=== PATIENT | male | born 1965 | race Caucasian/White ===

== ENCOUNTER → 2025-01-30 12:23 | Outpatient (REF) | payer BC, SELFPAY ==
[2025-01-30 13:21] LABS: Hematocrit 47.7 % (39.0-52.0); Hemoglobin 15.5 g/dL (13.0-18.0); Mean Corp Hgb Conc. 32.5 g/dL (33.0-37.0); Mean Corpuscular Volume 88.5 fL (80.0-94.0); Nucleated Red Blood Cells % 0 % (-); Platelet Count 284 10^3/uL (130-400); Red Cell Dist. Width 13.2 % (11.5-14.5)
[2025-01-30 13:58] LABS: Blood Urea Nitrogen 14 mg/dl (9-20); Calcium 9.7 mg/dl (8.4-10.2); Carbon Dioxide 34 mmol/L (22-30); Chloride 93 mmol/L (98-107); Glucose 112 mg/dl (70-99); Potassium 3.7 mmol/L (3.5-5.1); Sodium 133 mmol/L (135-145); eGFR > 60.00
== END ==
LOC: REG 12:23
PROVIDERS: ATTENDING PHYSICIAN Orthopaedic Surgery; FAMILY PHYSICIAN Family Medicine
DX: Z01.818 Encounter for other preprocedural examination (principal)
CPT/HCPCS: 36415; 80048; 85025; 93005

== ENCOUNTER 2025-02-03 06:13 | Day surgery (SDC) | payer BC, SELFPAY ==
--- NOTE | 2025-01-31 15:38 | PTCARENOTE ---
Abn ECG, Dr. Beavers notified, no additional interventions required.
[2025-02-03] VITALS (7 sets, daily range): BP systolic 100–129; BP diastolic 61–82; BMI 40.1
[2025-02-03] MEDS: TYLENOL 1000 MG PO (07:10)
[2025-02-03] MEDS: NORMOSOL-R/PLASMALYTE-A 1000 IV (07:11)
[2025-02-03] MEDS: CELEBREX 200 MG PO (07:11)
== END 2025-02-03 10:50 | disposition home or self-care (01) ==
LOC: SDS 06:13
PROVIDERS: ATTENDING PHYSICIAN Orthopaedic Surgery
DX: S83.232A Complex tear of medial meniscus, current injury, left knee, initial encounter (principal); X58.XXXA Exposure to other specified factors, initial encounter
CPT/HCPCS: 29880

== ENCOUNTER 2025-02-18 12:54 | Inpatient (IN) | payer BC, SELFPAY ==
[2025-02-18] VITALS (14 sets, daily range): BP systolic 115–162; BP diastolic 67–100; BMI 41.0
--- NOTE | 2025-02-18 08:05 | ED.GENMED ---
History of Present Illness
<Darien García PA-C - Last Filed: 02/18/25 14:48>
General
Chief Complaint: Abdominal Pain
Time Seen by Provider: 02/18/25 07:53
History of Present Illness
History of Present Illness:
58 history of hypertension and hyperlipidemia presents to the emergency department for evaluation of bright red rectal bleeding as well as syncopal event. Had heavy volume of liquid stool this morning that was mixed with blood. Second event when
being transferred on the stretcher that was associated with syncope. Current time he denies any abdominal pain and dizziness. Does not take antiplatelets or anticoagulants. No chest pain or shortness of breath. No history of similar.
Review of Systems
<Darien García PA-C - Last Filed: 02/18/25 14:48>
Review of Systems
Allergies reviewed?: Yes
All Other Systems: ROS reviewed and negative except as documented in HPI and ROS
Phy Exam
<Darien García PA-C - Last Filed: 02/18/25 14:48>
Physical Exam
Physical Exam:
GEN: Well appearing, NAD, WDWN
HEENT: Oral mucosa moist, no scleral icterus
Cardiac: Tachycardic, regular
Lung: No respiratory distress, no tachypnea
Abdomen: Soft, diffusely nontender abdomen exam limited by obesity
Rectal: Large amount of dark brown blood in the rectal vault
MSK: No gross deformity or injuries
Skin: Good color, no pallor or jaundice, no rashes
Neuro: AO x3, moves all extremities freely
Psych: Calm, cooperative
Course
<Darien García PA-C - Last Filed: 02/18/25 14:48>
Orders/Labs/Results
Orders:
Orders
02/18/25 08:02
CT Angio Abd/Pelvis w/wo IV [CT Abd/pelvis Angio W/wo Iv] Urgent
Comment:
Reason For Exam: lower GI bleed
02/18/25 08:17
Type+Screen Urgent
Complete Blood Count/With Diff Urgent
Comprehensive Metabolic Panel Urgent
Lactic Acid Urgent
02/18/25 11:00
0.9% Sodium Chloride [Nss (Preservative Free)] 10 ml IV BID
Pantoprazole [Protonix IV] 40 mg IV BID
02/18/25 11:12
Lactated Ringers [Lr] 500 ml IV BOLUS
02/18/25 12:17
Lactate Level [Lactic Acid] Urgent
02/18/25 12:32
Admit/Transfer Patient As Directed
Co-Sign Provider:
Level of Care: Inpatient admission
Assign to:: Medical/Surgical
Physician / Group: tyler aguilar
Diagnosis: Acute GI bleed
Reason for Hospitalization: Acute GI bleed
Expected length of stay greater than two midnights?: Yes
ELOS- Estimated Length of Stay in days: 3
I certify the patient meets the requirements for IP care: Yes
GASTROINTESTINAL CONSULT Routine
Consulting Provider: Yoel Eden
Was physician already notified: Yes
PRN Pain Medication Management As Directed
May give lesser potent ordered pain med per pt: Yes
preference::
Protocol:: Medication orders for pain may be administered in a
manner that supports deferring to patient preference
when the pt is:
- Requesting an ordered lesser potent pain medication.
Least to most potent pain medications are defined
as: acetaminophen < NSAID < tramadol < opioids
(morphine, oxycodone, hydromorphone).
- Requesting a lesser dose of the same medication IF
ORDERED.
- Requesting a less intrusive route of administration
if both routes are prescribed by the provider (PO <
IV).
02/18/25 12:34
Code Status As Directed
Resuscitation Status: Full Code
02/18/25 12:45
0.9% Sodium Chloride 1000 ml [Nss] 1,000 ml IV 70 mls/hr
02/19/25 06:00
Hemoglobin A1c [Glycohemoglobin (HgbA1c)] IN AM
Abnormal Lab Results
02/18/25
08:17
WBC 13.9 H 10^3/uL
(4.8-10.8)
RBC 4.38 L 10^6/uL
(4.70-6.10)
Hgb 12.9 L g/dL
(13.0-18.0)
Hct 37.2 L %
(39.0-52.0)
Abs Immat Gran (auto) 0.1 H 10^3/uL
(0-0.05)
Absolute Neuts (auto) 11.3 H 10^3/uL
(1.4-6.5)
Neutrophils % 81.0 H %
(42.2-75.2)
Lymphocytes % 13.5 L %
(20.5-51.1)
BUN 23 H mg/dl
(9-20)
Glucose 246 H mg/dl
(70-99)
Lactic Acid 2.9 H mmol/L
(0.7-2.0)
02/18/25 08:17
02/18/25 08:17
Vital Signs
Initial and Last Documented VS:
Initial Vital Signs
Temp Pulse Resp BP Pulse Ox
98.2 F 102 18 121/67 97
02/18/25 07:55 02/18/25 07:55 02/18/25 07:55 02/18/25 07:55 02/18/25 07:55
Last Documented Vital Signs
Temp Pulse Resp BP Pulse Ox
98.2 F 96 20 140/87 95
02/18/25 07:55 02/18/25 14:00 02/18/25 14:00 02/18/25 14:00 02/18/25 14:06
<Leonardo De La Cruz, DO - Last Filed: 02/18/25 08:47>
Orders/Labs/Results
Orders:
Orders
02/18/25 08:02
CT Angio Abd/Pelvis w/wo IV [CT Abd/pelvis Angio W/wo Iv] Urgent
Comment:
Reason For Exam: lower GI bleed
02/18/25 08:17
Type+Screen Urgent
Complete Blood Count/With Diff Urgent
Comprehensive Metabolic Panel Urgent
Lactic Acid Urgent
02/18/25 11:00
0.9% Sodium Chloride [Nss (Preservative Free)] 10 ml IV BID
Pantoprazole [Protonix IV] 40 mg IV BID
02/18/25 11:12
Lactated Ringers [Lr] 500 ml IV BOLUS
02/18/25 12:17
Lactate Level [Lactic Acid] Urgent
02/18/25 12:32
Admit/Transfer Patient As Directed
Co-Sign Provider:
Level of Care: Inpatient admission
Assign to:: Medical/Surgical
Physician / Group: tyler aguilar
Diagnosis: Acute GI bleed
Reason for Hospitalization: Acute GI bleed
Expected length of stay greater than two midnights?: Yes
ELOS- Estimated Length of Stay in days: 3
I certify the patient meets the requirements for IP care: Yes
GASTROINTESTINAL CONSULT Routine
Consulting Provider: Yoel Eden
Was physician already notified: Yes
PRN Pain Medication Management As Directed
May give lesser potent ordered pain med per pt: Yes
preference::
Protocol:: Medication orders for pain may be administered in a
manner that supports deferring to patient preference
when the pt is:
- Requesting an ordered lesser potent pain medication.
Least to most potent pain medications are defined
as: acetaminophen < NSAID < tramadol < opioids
(morphine, oxycodone, hydromorphone).
- Requesting a lesser dose of the same medication IF
ORDERED.
- Requesting a less intrusive route of administration
if both routes are prescribed by the provider (PO <
IV).
02/18/25 12:34
Code Status As Directed
Resuscitation Status: Full Code
02/18/25 12:45
0.9% Sodium Chloride 1000 ml [Nss] 1,000 ml IV 70 mls/hr
02/19/25 06:00
Hemoglobin A1c [Glycohemoglobin (HgbA1c)] IN AM
Abnormal Lab Results
02/18/25
08:17
WBC 13.9 H 10^3/uL
(4.8-10.8)
RBC 4.38 L 10^6/uL
(4.70-6.10)
Hgb 12.9 L g/dL
(13.0-18.0)
Hct 37.2 L %
(39.0-52.0)
Abs Immat Gran (auto) 0.1 H 10^3/uL
(0-0.05)
Absolute Neuts (auto) 11.3 H 10^3/uL
(1.4-6.5)
Neutrophils % 81.0 H %
(42.2-75.2)
Lymphocytes % 13.5 L %
(20.5-51.1)
BUN 23 H mg/dl
(9-20)
Glucose 246 H mg/dl
(70-99)
Lactic Acid 2.9 H mmol/L
(0.7-2.0)
02/18/25 08:17
02/18/25 08:17
Vital Signs
Initial and Last Documented VS:
Initial Vital Signs
Temp Pulse Resp BP Pulse Ox
98.2 F 102 18 121/67 97
02/18/25 07:55 02/18/25 07:55 02/18/25 07:55 02/18/25 07:55 02/18/25 07:55
Last Documented Vital Signs
Temp Pulse Resp BP Pulse Ox
98.2 F 96 20 140/87 95
02/18/25 07:55 02/18/25 14:00 02/18/25 14:00 02/18/25 14:00 02/18/25 14:06
<Darien García PA-C - Last Filed: 02/18/25 14:48>
MDM/Problems Addressed
MDM/Problems Addressed:
Imaging without evidence for active large gastrointestinal hemorrhage. The patient's vital signs did improve in the ED, his syncopal event was likely a vagal event secondary to GI irritation from active bleeding. Did have continued slow oozing of
dark red blood while in the ED. Will admit to the hospitalist service for GI consultation. His lactic acidosis is noted, feel this most likely is due to transient hypotension from syncope, given hemodynamic improvement would avoid further
crystalloid infusion to avoid hemodilution in the setting of active bleeding process
<Darien García PA-C - Last Filed: 02/18/25 14:48>
*Pulse Oximetry
SaO2: 97
Oxygen Mode of Delivery: Room air
Patient hypoxic: no
*Critical Care Note
Total Time (30-74mins, 75-104mins- exclusive of procedures): Not Applicable
ED Attending Note
<Darien García PA-C - Last Filed: 02/18/25 14:48>
-
Portions of this chart may have been created with voice recognition software.� Occasional wrong word or��sound alike� substitutions may have occurred due to the inherent limitations of voice recognition software.
<Leonardo De La Cruz DO - Last Filed: 02/18/25 08:47>
ED Attending Note
Patient seen and examined by attending physician: Yes
ED Attending Note:
I reviewed and agree with history treatment plan by Todd García PA-C. My exam revealed
Physical Exam
General: no apparent distress, not acutely ill
Neck: supple. no meningeal signs. normal posterior pharynx
Heart: s1/s2 regular rate and rhythm, no murmur. equal radial
pulses.
HEENT: Pupils equal round reactive to light, EOMI
Lungs: no acute respiratory distress. clear bilaterally
Abdomen: normal bowel sounds. not tender. no CVAT, bright red blood per rectum
Neuro: alert and oriented. no focal neurological deficits cranial nerves II through XII intact
Skin: no rash
Psychiatric: well kept. interactive and cooperative
Extremities: no edema. no calf tenderness. negative homans. good distal pulses
59-year-old male with rectal bleeding, unclear etiology. Patient had syncopal episode as well. CT angiography and labs are pending. Plan for admission for further workup.
Discharge Plan
Departure
Patient Disposition: Admit
Date of Disposition: 02/18/25
Time of Disposition: 09:23
Admit to: IMU
Presentation/result/management discussed w/ accepting MD/DO: Hospitalist
Discharge Problem:
Acute lower GI hemorrhage
Interventions
Interventions:
*General Assessment Last Done: 02/18/25 07:55
*Neglect/Abuse Screening Last Done: 02/18/25 07:55
*ED COVID-19 Vaccine History Last Done: 02/18/25 07:55
*ED Influenza Vaccine History Last Done: 02/18/25 07:55
[facility] Risk Assessment Tool Last Done: 02/18/25 07:55
*Risk Screen - Suicide (C-SSRS) Last Done: 02/18/25 07:55
AP-Oxatbu-Bfzpptuykd Assessment Last Done: 02/18/25 09:19
[2025-02-18 08:46] LABS: Hematocrit 37.2 % (39.0-52.0); Hemoglobin 12.9 g/dL (13.0-18.0); Mean Corp Hgb Conc. 34.7 g/dL (33.0-37.0); Mean Corpuscular Volume 84.9 fL (80.0-94.0); Nucleated Red Blood Cells % 0 % (-); Platelet Count 309 10^3/uL (130-400); Red Cell Dist. Width 12.9 % (11.5-14.5)
[2025-02-18 08:59] LABS: ALT (SGPT) 24 U/L (0-50); AST (SGOT) 21 U/L (17-59); Albumin 4.2 g/dl (3.5-5.0); Alkaline Phosphatase 50 U/L (38-126); Blood Urea Nitrogen 23 mg/dl (9-20); Calcium 9.4 mg/dl (8.4-10.2); Carbon Dioxide 24 mmol/L (22-30); Chloride 99 mmol/L (98-107); Estimated Creatinine Clearance > 125 ml/min; Glucose 246 mg/dl (70-99); Potassium 3.5 mmol/L (3.5-5.1); Sodium 135 mmol/L (135-145); Total Protein 6.6 g/dl (6.3-8.2); eGFR > 60.00
--- NOTE | 2025-02-18 10:12 | CON.GI ---
Consultation
-
Date/Time Consultation Requested: 02/18/25929
Date/Time Consultation Performed: 02/18/25, 1013
Requesting Provider: Fallon Bridges MD
Performing Provider: Yoel Eden DO
Reason for Consultation: Lower GI bleed
Medical History
Chief Complaint / HPI
Chief Complaint: Abdominal Pain
History of Present Illness:
Mr Downing is a 59 y.o male with a past medical history of HTN, HLD, morbid obesity, colon polyps, diverticulosis, and recent orthopedic surgery (01/2025) with significant NSAID use who presented to the ED with bright red blood per rectum concerning
for lower GI bleed. GI has been consulted for further evaluation and management.
Patient states he was in his usual state of health until around 0200 a.m. when he experienced significant generalized abdominal pain. Gabbs as though he was going to vomit and had episodes of dry heaving. Denies any episodes of coffee-ground emesis
or hematemesis. He felt as though his symptoms may be related to a viral gastroenteritis. He went to the bathroom approximately 4�5 times and later found to have significant bright red blood filling the toilet bowl along with blood clots. He
denies any prior history of GI bleeding in the past. He continue to have ongoing large-volume hematochezia along with presyncopal symptoms. Given his bloody stools, he came to the ED for further evaluation via EMS. Otherwise, he denies any
antiplatelet or anticoagulants. However, he notes taking significant NSAID use specifically with Aleve (800 mg twice daily) for several months due to his chronic knee pain and recently underwent orthopedic surgery back on 01/2025. His last
colonoscopy is back on 11/2020 where he was found to have a few colon polyps along with diverticulosis in the sigmoid and descending colon along with nonbleeding internal hemorrhoids. He was advised to repeat colonoscopy in 3 years for surveillance
and is overdue. Otherwise, he denies any family history of CRC. Currently, he reports feeling well with complete resolution of his previous abdominal pain and denies any other discomfort.
Prior colonoscopy (screening, adequate prep- Do) 11/2020- Impression: Normal ileum. One 10 mm polyp at HF injected and removed via HS and clipped/tattooed (path with TA), one 6 mm polyp in SC removed via HS (path with TA), one 3 mm polyp removed via
biopsy forceps (path with HPP), diverticulosis in sigmoid and descending colon along with non-bleeding internal hemorrhoids. Examination was otherwise normal. Advised a repeat colonoscopy in 3 years for surveillance.
In the ED, patient was afebrile and HD-stable with HR 50-100s. Labs notable for BUN 23, Rivet Thrower 0.8, and normal LFTs. Lactic acid 2.9. CBC with WBC 13.9, Hgb 12.9 (prev 15.5) and plts 309. CTA Abd/pelvis (-) active GI bleed and noted colonic
diverticulosis and diffuse hepatic steatosis. Patient was given IVF and admitted to medicine for further management.
Past Medical History
Past Medical History: Other (HTN, HLD, obesity, colon polyps, diverticulosis)
Past Surgical History: Orthopedic
Social History
Alcohol: None
Drug: None
Family History
Family History: Reviewed & Not Pertinent
Allergies / Home Medications
Allergy/AdvReac Type Severity Reaction Status Date / Time
No Known Allergies Allergy Unverified 02/03/25 06:55
�Medication �Instructions �Recorded
chlorthalidone 25 mg tablet 25 mg PO DAILY 02/01/25
rosuvastatin 10 mg tablet 10 mg PO DAILY 02/01/25
ibuprofen 200 mg tablet (Advil) 800 mg PO PRN PRN pain 02/03/25
Review of Systems
-
All other systems: A 12 pt ROS was Negative except as stated above in HPI
Vital Signs
Temp Pulse Resp BP Pulse Ox
98.2 F 90 16 149/100 94
02/18/25 07:55 02/18/25 09:17 02/18/25 09:17 02/18/25 09:16 02/18/25 09:17
Physical Exam
Exam
General: No Apparent Distress, Comfortable and Other (Obese)
HEENT: Anicteric and Moist Mucous Membranes
Respiratory: Non Labored Respirations
Cardiac: Other (RR on tele)
GI: Soft, Non Tender and Distended (Moderately distended, protuberant obese abdomen)
Neuro: AO x 3 and Nonfocal/Grossly Intact
Psych: Calm
Results
WBC 13.9 10^3/uL (4.8-10.8) H 02/18/25 08:17
Hgb 12.9 g/dL (13.0-18.0) L 02/18/25 08:17
Hct 37.2 % (39.0-52.0) L 02/18/25 08:17
MCV 84.9 fL (80.0-94.0) 02/18/25 08:17
Plt Count 309 10^3/uL (130-400) 02/18/25 08:17
Absolute Neuts (auto) 11.3 10^3/uL (1.4-6.5) H 02/18/25 08:17
Sodium 135 mmol/L (135-145) 02/18/25 08:17
Potassium 3.5 mmol/L (3.5-5.1) 02/18/25 08:17
Chloride 99 mmol/L (98-107) 02/18/25 08:17
Carbon Dioxide 24 mmol/L (22-30) 02/18/25 08:17
BUN 23 mg/dl (9-20) H 02/18/25 08:17
Creatinine 0.8 mg/dL (0.7-1.3) 02/18/25 08:17
Calcium 9.4 mg/dl (8.4-10.2) 02/18/25 08:17
Total Bilirubin 0.5 mg/dl (0.2-1.3) 02/18/25 08:17
AST 21 U/L (17-59) 02/18/25 08:17
ALT 24 U/L (0-50) 02/18/25 08:17
Alkaline Phosphatase 50 U/L (38-126) 02/18/25 08:17
Diagnostic Image Results: As detailed above
Assessment / Plan
-
Mr Downing is a 59y.o male with a past medical history of HTN, HLD, morbid obesity, colon polyps, diverticulosis, and recent orthopedic surgery (01/2025) with significant NSAID use who presented to the ED with bright red blood per rectum concerning
for GI bleed. GI has been consulted for further evaluation and management.
#Hematochezia
#Acute Blood Loss Anemia
#Syncope
#Elevated Lactic Acid
#Abdominal Pain #Nausea
#Significant NSAID Use
Impression: Patient presenting with multiple episodes of large-volume hematochezia and syncope concerning for GI bleed. Previously had abdominal pain, nausea along with dry heaving prior to his bloody bowel movements at home. No similar symptoms in
past. Found to have mild anemia with hemoglobin of 12s in ED (prev 15) although suspect degree of hemoconcentration secondary to hypovolemia along with leukocytosis. Recent CTA unremarkable for any active extravasation only noting colonic
diverticulosis. Otherwise, he is not on any antiplatelets, anticoagulants and denies any prior history of GI bleeding in the past. Last colonoscopy back on 11/2020 with few colon polyps and scattered diverticulosis in sigmoid and descending colon.
Clinically, his symptoms seem most consistent for a diverticular hemorrhage although somewhat atypical versus ischemic colitis given his abdominal pain, elevated lactate although no CT evidence suggest colonic wall thickening. Doubt brisk UGIB
based on his hemodynamics and without melena. However, has been taking significant amounts of NSAIDs (specifically Aleve 800 mg twice daily for months) and given his previous abdominal pain/nausea along with elevated BUN (likely due to hypovolemia)
concern for possible PUD. Currently, he is hemodynamically stable pending IVF for ongoing resuscitation.
Recommendations:
- Ensure 2 large-bore IVs
- Okay for CLD
- Trend Hgb with serial CBC q 12 hrs, repeat CBC later this afternoon
- Start IV PPI 40 mg BiD
- Repeat lactate after IVF
- Tentatively plan for EGD and colonoscopy early next week on 02/20/2025 with plans to start bowel prep tomorrow
- If recurrent large-volume hematochezia over weekend or other concern for brisk GI bleeding, would obtain repeat stat CTA in attempts of localization
- Avoidance of all NSAIDs
- Pain control and antiemetics as needed
- Rest of care as per primary team
Discussed with primary internal medicine team. GI will continue to follow.
Data Reviewed
-
Radiology: Image Personally Visualized and interpreted and Report Reviewed by me
CT Scan: Image Personally Visualized and interpreted and Report Reviewed by me
Old Records: Reviewed
-
-
Thank you for consultation and allowing me to participate in the patient's care. Please call the correctional officer GI physician during the after hours with any questions or concerns.
[2025-02-18] MEDS: PROTONIX IV 40 MG IV ×2 (10:50→21:09)
[2025-02-18] MEDS: NSS (PRESERVATIVE FREE) 10 ML IV ×2 (10:50→21:09)
[2025-02-18] MEDS: LR 500 IV (11:40)
--- NOTE | 2025-02-18 12:37 | HPS.HSE ---
Family Physician
-
Family Physician: Kamran West
Chief Complaint
-
Abdominal pain, bloody stool
History of Present Illness
59-year-old male with past medical history of hyperlipidemia, morbid obesity, colon polyp, hypertension, diverticulosis, recent knee surgery came to the hospital with bright red blood per rectum. Per patient after his knee surgery he has been
taking quite few ibuprofen. He also is complaining of abdominal pain. Denies any fever/chills. Denies any nausea, vomiting, diarrhea, constipation.
Medical History
Past Medical History
Past Medical History: Reports HTN, Hypercholesterolemia and Other (Diverticulosis)
Past Surgical History: Reports Orthopedic
Social History
Alcohol: None
Drug: None
Family History
Family History: Not pertinent
Allergies / Home Medications
Allergies reflects when Allergies were last updated in [facility].
Home Medications with original date entered in [facility]
Allergy/Medication List:
Allergies
Allergy/AdvReac Type Severity Reaction Status Date / Time
No Known Allergies Allergy Unverified 02/03/25 06:55
Home Medications
chlorthalidone 25 mg tablet 25 mg PO DAILY 02/01/25
rosuvastatin 10 mg tablet 10 mg PO DAILY 02/01/25
ibuprofen 200 mg tablet (Advil) 800 mg PO PRN PRN pain 02/03/25
famotidine 20 mg tablet (Pepcid) 20 mg PO DAILY PRN acid reflux 02/18/25
Review of Systems
-
History Source: Patient
A 12 point ROS was completed and negative except as noted: Yes
Abdomen/GI: Reports Abdominal Pain and Bloody Stools
Physical Exam
Vital Signs
Vital Signs
Temp Pulse Resp BP Pulse Ox
98.2 F 75 13 121/78 96
02/18/25 07:55 02/18/25 12:00 02/18/25 12:00 02/18/25 12:00 02/18/25 12:00
Physical Exam
General: No Apparent Distress and Comfortable
HEENT: NormoCephalic, Anicteric and Moist mucous membranes
Respiratory: Clear and Non Labored Respirations; No Wheezes
Cardiac: S1/S2 and Regular Rhythm
GI: Soft, Non Tender, Normal Bowel Sounds and Tender
Genito-urinary: No Rothman
Musculoskeletal: No Edema
Neuro: Awake, Alert, Oriented and AO x 3
Psych: Calm and Intact Judgment/Insight
Laboratory Results
-
02/18/25 08:17
02/18/25 08:17
Laboratory Results
Lactic Acid 2.9 mmol/L (0.7-2.0) H 02/18/25 08:17
Total Bilirubin 0.5 mg/dl (0.2-1.3) 02/18/25 08:17
AST 21 U/L (17-59) 02/18/25 08:17
ALT 24 U/L (0-50) 02/18/25 08:17
Alkaline Phosphatase 50 U/L (38-126) 02/18/25 08:17
Impression/Plan
-
Hematochezia with acute blood loss anemia secondary to GI bleed
Given his recent use of ibuprofen cannot rule out upper GI bleed
Continue IV PPI twice daily
Trend H&H, transfuse hemoglobin less than 7
Continue with fluids
Abdomen CT scan without active GI extravasation, 1.1 cm indeterminate nodule in the lateral aspect of interpole of the left kidney. MRI abdomen nonemergent outpatient
GI following, plan for EGD/colonoscopy per GI
Clear liquid diet
Presyncope likely 2/2 Acute GI bleed
monitor
cw IVF
Lactic acidosis
Resolved
Continue fluids
History of hypertension
Chlorthalidone
Hyperlipidemia
Morbid obesity due to excess calories
Monitor
Should get sleep apnea study outpatient
DVT prophylaxis
SCDs
Full code
I spent a total of 76 minutes with the patient or on the floor. More than 50% of this time involved counseling and coordination of care.
[2025-02-18] MEDS: NSS 1000 IV ×2 (13:59→21:21)
--- NOTE | 2025-02-18 15:15 | CM ---
Chart reviewed and spoke with and pt at ED bedside
Lives in [address] [facility]
independent with ADLs and ambulation
no DME
PCP Samantha West
[facility] on [address]
NO hx of VN
no hx of SNF
DCP to go home
can drive him home
CM will continue to follow up for dcp needs
[2025-02-18 15:55] LABS: Hematocrit 33.9 % (39.0-52.0); Hemoglobin 11.8 g/dL (13.0-18.0)
--- NOTE | 2025-02-18 20:50 | PTCARENOTE ---
Pt arrived from the ED by stretcher. Pullover onto hospital bed. NSS running through right AC IV. Call wagner within reach. Will continue to monitor.
[2025-02-19] VITALS (7 sets, daily range): BP systolic 121–145; BP diastolic 63–91
[2025-02-19 01:34] LABS: Hematocrit 30.9 % (39.0-52.0); Hemoglobin 10.7 g/dL (13.0-18.0)
--- NOTE | 2025-02-19 06:32 | W.PN.GI.CBS2 ---
Today's Communication / Plan
-
No signs of recurrent bleeding, suggestive of resolving diverticular bleed. Ordered Miralax prep to start this AM then Nulytely prep later this afternoon. Plan for EGD/Colon tomorrow, keep NPO at [place] (except for bowel prep- okay to continue). Rest of
care as below.
Assessment / Plan
-
Mr Downing is a 59y.o male with a past medical history of HTN, HLD, morbid obesity, colon polyps, diverticulosis, and recent orthopedic surgery (01/2025) with significant NSAID use who presented to the ED with bright red blood per rectum concerning
for GI bleed. GI has been consulted for further evaluation and management.
#Hematochezia
#Acute Blood Loss Anemia
#Syncope
#Elevated Lactic Acid
#Abdominal Pain #Nausea
#Significant NSAID Use
Impression: Patient presenting with multiple episodes of large-volume hematochezia and syncope concerning for GI bleed. Previously had abdominal pain, nausea along with dry heaving prior to his bloody bowel movements at home. No similar symptoms in
past. Found to have mild anemia with hemoglobin of 12s in ED (prev 15) although suspect degree of hemoconcentration secondary to hypovolemia along with leukocytosis. Recent CTA unremarkable for any active extravasation only noting colonic
diverticulosis. Otherwise, he is not on any antiplatelets, anticoagulants and denies any prior history of GI bleeding in the past. Last colonoscopy back on 11/2020 with few colon polyps and scattered diverticulosis in sigmoid and descending colon.
Clinically, his symptoms seem most consistent for a diverticular hemorrhage although somewhat atypical versus ischemic colitis given his abdominal pain, elevated lactate although no CT evidence suggest colonic wall thickening. Doubt brisk UGIB
based on his hemodynamics and without melena. However, has been taking significant amounts of NSAIDs (specifically Aleve 800 mg twice daily for months) and given his previous abdominal pain/nausea along with elevated BUN (likely due to hypovolemia)
concern for possible PUD. Currently, he is hemodynamically stable without signs of recurrent GI bleedings since admission.
Hgb 12.9 -> 11.8 -> 10.7 -> 10.2 without recurrent hematochezia, passing old blood again most suggestive of resolving diverticular hemorrhage.
Recommendations:
- Ensure 2 large-bore IVs
- Continue CLD, keep NPO at [place] (EXCEPT FOR PREP)
- Trend Hgb with CBC q daily, transfuse PRN
- Empiric IV PPI 40 mg BiD
- Plan for bi-directional endoscopy with EGD/Colon tomorrow, 02/20/2025
- Ordered Miralax prep to start clean early this AM given body habitus
- Then will start 4L Nulytely prep later this afternoon around 1600
- If recurrent large-volume hematochezia over weekend or other concern for brisk GI bleeding, would obtain repeat stat CTA in attempts of localization
- Avoidance of all NSAIDs
- Pain control and antiemetics as needed
- Rest of care as per primary team
GI will continue to follow.
Subjective
Subjective
Date of Service: February 19, 2025
- No acute events overnight or further reported bloody BMs since admission
- Lactate 2.9 -> 1.6
- Hgb 12.9 -> 11.8 -> 10.7 -> 10.2
Resting comfortably this AM, denies any further bright red blood or large volume hematochezia since admission. Passed small amount of old blood this AM and continues to pass large amount of flatus. No other recurrent abdominal pain or
nausea/vomiting. Discussed pursuing EGD/Colon tomorrow and he is amenable in regards to his.
Objective
Data Reviewed
Laboratory Data:
Laboratory Results
Total Bilirubin 0.5 mg/dl (0.2-1.3) 02/18/25 08:17
AST 21 U/L (17-59) 02/18/25 08:17
ALT 24 U/L (0-50) 02/18/25 08:17
Alkaline Phosphatase 50 U/L (38-126) 02/18/25 08:17
Vital Signs and I&O:
Vital Signs
Temp Pulse Resp BP Pulse Ox
97.8 F 79 18 129/63 95
02/19/25 03:21 02/19/25 03:21 02/19/25 03:21 02/19/25 03:21 02/19/25 03:21
Physical Exam
Physical Exam
HEENT: Anicteric and Moist mucous membranes
Pulmonary: Other (Normal WOB on room air)
GI: Soft, Distended (Distended, protuberant obese abdomen) and Non Tender
Neuro: Non Focal
[2025-02-19 07:58] LABS: Hematocrit 29.9 % (39.0-52.0); Hemoglobin 10.2 g/dL (13.0-18.0)
[2025-02-19 08:00] LABS: Hematocrit 29.6 % (39.0-52.0); Hemoglobin 10.2 g/dL (13.0-18.0); Mean Corp Hgb Conc. 34.5 g/dL (33.0-37.0); Mean Corpuscular Volume 87.1 fL (80.0-94.0); Nucleated Red Blood Cells % 0 % (-); Platelet Count 265 10^3/uL (130-400); Red Cell Dist. Width 13.3 % (11.5-14.5)
[2025-02-19 08:23] LABS: Blood Urea Nitrogen 20 mg/dl (9-20); Calcium 8.8 mg/dl (8.4-10.2); Carbon Dioxide 31 mmol/L (22-30); Chloride 99 mmol/L (98-107); Estimated Creatinine Clearance > 125 ml/min; Glucose 136 mg/dl (70-99); Potassium 3.0 mmol/L (3.5-5.1); Sodium 135 mmol/L (135-145); eGFR > 60.00
[2025-02-19] MEDS: CRESTOR 10 MG PO (08:32)
[2025-02-19] MEDS: PROTONIX IV 40 MG IV ×2 (08:33→19:37)
[2025-02-19] MEDS: NSS (PRESERVATIVE FREE) 10 ML IV ×2 (08:33→19:37)
[2025-02-19 08:53] LABS: Glycohemoglobin (HgbA1c) 6.7 % (4.0-5.9)
[2025-02-19] MEDS: KCL 40 MEQ PO (09:08)
[2025-02-19] MEDS: GAVILAX 238 GM PO (10:52)
--- NOTE | 2025-02-19 11:47 | W.PN.HOSP.TC ---
Today's Communication/Plan
-
Monitor vitals
See plan
Monitor hemoglobin
Monitor for the bleeding
Bowel prep per GI
N.p.o. tomorrow for EGD and colonoscopy
PPI
Assessment / Plan
Assessment / Plan
General: No Apparent Distress and Comfortable
HEENT: NormoCephalic, Anicteric and Moist mucous membranes
Respiratory: Clear and Non Labored Respirations; No Wheezes
Cardiac: S1/S2 and Regular Rhythm
GI: Soft, Non Tender, Normal Bowel Sounds and Tender
Genito-urinary: No Rothman
Musculoskeletal: No Edema
Neuro: Awake, Alert, Oriented and AO x 3
Psych: Calm and Intact Judgment/Insight
Hematochezia with acute blood loss anemia secondary to GI bleed
Given his recent use of ibuprofen cannot rule out upper GI bleed
Continue IV PPI twice daily
Trend H&H, transfuse hemoglobin less than 7
Continue with fluids
Abdomen CT scan without active GI extravasation, 1.1 cm indeterminate nodule in the lateral aspect of interpole of the left kidney. MRI abdomen nonemergent outpatient
GI following, plan for EGD/colonoscopy per GI
Clear liquid diet, n.p.o. 02/20 for EGD and colonoscopy
Bowel prep per GI
Hemoglobin 10.2 today
Presyncope likely 2/2 Acute GI bleed
monitor
cw IVF
Lactic acidosis
Resolved
Continue fluids
Hypokalemia
Replete
History of hypertension
Hold chlorthalidone as blood pressure normal and has hypokalemia
Hyperlipidemia
Morbid obesity due to excess calories
Monitor
Should get sleep apnea study outpatient
DVT prophylaxis
SCDs
Full code
Anticipated Discharge: 24 - 48 hours
Subjective/Interval History
-
Date of Service: February 19, 2025
Denies pain
Objective Data
-
Labs:
Laboratory Results
02/19/25 02/19/25 02/19/25
01:16 07:35 07:35
WBC 6.9
Hgb 10.7 L 10.2 L 10.2 L
Hct 30.9 L 29.6 L
Plt Count
Sodium
Potassium
Chloride
Carbon Dioxide
BUN
Creatinine
Glucose
Calcium
02/19/25
07:35
WBC
Hgb
Hct 29.9 L
Plt Count 265
Sodium 135
Potassium 3.0 L
Chloride 99
Carbon Dioxide 31 H
BUN 20
Creatinine 0.7
Glucose 136 H
Calcium 8.8
Vital Signs:
Vital Signs
Temp Pulse Resp BP Pulse Ox
98.5 F 73 16 121/66 94
02/19/25 08:19 02/19/25 08:32 02/19/25 08:19 02/19/25 08:32 02/19/25 08:19
I&O
02/18/25 02/19/25 02/20/25
06:59 06:59 06:59
Output Total 700 / 700
Balance -700 / -700
[2025-02-19] MEDS: KCL 20 MEQ PO (12:58)
[2025-02-19] MEDS: NSS 1000 IV (12:58)
[2025-02-19] MEDS: NULYTELY SOLUTION 4 LITERS PO (15:53)
[2025-02-19] MEDS: DULCOLAX 10 MG PO (15:54)
[2025-02-20 02:54] VITALS: BP 120/69
[2025-02-20] MEDS: NSS 1000 IV (03:40)
[2025-02-20 06:00] VITALS: BMI 39.1
[2025-02-20 06:52] LABS: Hematocrit 30.7 % (39.0-52.0); Hemoglobin 10.5 g/dL (13.0-18.0); Mean Corp Hgb Conc. 34.2 g/dL (33.0-37.0); Mean Corpuscular Volume 85.8 fL (80.0-94.0); Nucleated Red Blood Cells % 0 % (-); Platelet Count 272 10^3/uL (130-400); Red Cell Dist. Width 13.2 % (11.5-14.5)
[2025-02-20 07:40] VITALS: BP 127/74
[2025-02-20] MEDS: NSS (PRESERVATIVE FREE) 10 ML IV (07:51)
[2025-02-20] MEDS: PROTONIX IV 40 MG IV (07:51)
[2025-02-20] MEDS: CRESTOR PO (07:52)
--- NOTE | 2025-02-20 07:52 | W.PN.HOSP.TC ---
Today's Communication/Plan
-
Discharge home today
Assessment / Plan
Assessment / Plan
Impression:
59 years old with history of hypertension, hyperlipidemia, obesity, who admitted with GI bleeding, seen by GI, plan for EGD/colonoscopy.
EGD/colonoscopy showed:
EGD Findings:
Normal esophagus; Z-line regular at 43 cm from incisors.
Gastric fundus and body showed erythematous and petechial mucosa; biopsies obtained.
No erosions or ulcerations; stomach otherwise normal on direct and retroflexion views.
Duodenum normal up to second portion.
No evidence of active or old bleeding; remainder of upper GI tract normal.
Colonoscopy Findings:
Perianal and digital rectal exams normal.
Visualization limited by extensive semi-liquid stool, blood clots, and poor prep despite lavage.
Terminal ileum normal.
Polyps:
3 mm sessile polyp in ascending colon removed with cold snare; complete resection and retrieval.
10 mm semi-pedunculated polyp in transverse colon removed with hot snare; complete resection and retrieval. Three hemostatic clips placed for hemostasis and tissue capture.
Tattoo at hepatic flexure noted; site normal.
Multiple diverticula throughout colon.
Small amount of old blood clots and copious brown stool suggestive of resolved diverticular hemorrhage.
No active bleeding at end of procedure.
GI recommended:
- Await pathology results from EGD and colonoscopy
- Strict avoidance of all NSAIDs
- Recommend a repeat colonoscopy as an outpatient within 3 months.
Will require an extended two-day prep
- Return to GI office at appointment to be scheduled after discharge
She will be discharged home today, avoid NSAIDs and repeat CBC after 1 week, follow-up with GI as OP.
Newly diagnosed diabetes, discussed with the patient, diet and exercise, provided with instructions.
Assessment/plan:
Hematochezia with Acute Blood Loss Anemia (Secondary to GI Bleed) status post EGD/colonoscopy
Recent ibuprofen use;
Started IV PPI twice daily
Trend H&H; transfuse if hemoglobin < 7
Started IV fluids
CT abdomen: no active GI extravasation; 1.1 cm indeterminate nodule in lateral aspect of interpole of left kidney ? MRI abdomen outpatient (non-emergent)
GI following; plan for EGD/colonoscopy per GI
Resulted as above.
EGD unremarkable.
Colonoscopy shows 2 polyps status post removal/diverticulosis.
GI recommending avoiding NSAIDs.
Will be discharged home today and repeat CBC after only
Presyncope (Likely Secondary to Acute GI Bleed)
Monitor
Continue IV fluids
Diabetes mellitus newly diagnosed (no history of diabetes)
Hemoglobin A1c 6.7.
Insulin sliding scale.
Diabetic teaching.
Discussed with the patient, diet and exercise, provided with instructions.
Patient prefers to hold off starting metformin for now.
Lactic Acidosis
Resolved
Continue fluids
Hypokalemia
Replete potassium
History of Hypertension
Hold chlorthalidone (BP normal and hypokalemia present)
Hyperlipidemia
Continue current management
Morbid Obesity (Due to Excess Calories)
Monitor
Recommend outpatient sleep apnea study
DVT Prophylaxis
Sequential compression devices (SCDs)
Code Status
Full code
Diet: low carb.
Disposition: Discharge home today.
Total time spent on today's encounter was 55 minutes which included time spent in counseling the patient/family regarding diagnosis and treatment plan as listed above, goals of care, and symptom management. Case was discussed with nursing staff,
specialists, and care coordinators/case management. All labs and imaging personally reviewed by me. Remainder the time spent in detailed review of previous records, lab data, imaging, and other medical provider documentation.
Part of this note was created using voice recognition system. Occasional wrong word or �sound alike� substitutions may have inadvertently occurred due to the inherent limitations of voice recognition software. If noted kindly bring it to my
attention for correction.
Anticipated Discharge: Today
Subjective/Interval History
-
Date of Service: February 20, 2025
Patient seen and examined at bedside, denies any chest pain or shortness of breath, no abdominal pain, no nausea, no vomiting, no diarrhea or constipation.
Objective Data
-
Labs:
Laboratory Results
02/20/25
06:42
WBC 7.5
Hgb 10.5 L
Hct 30.7 L
Plt Count 272
Sodium Pending
Potassium Pending
Chloride Pending
Carbon Dioxide Pending
BUN Pending
Creatinine Pending
Glucose Pending
Calcium Pending
Vital Signs:
Vital Signs
Temp Pulse Resp BP Pulse Ox
98.5 F 66 16 127/74 94
02/20/25 07:40 02/20/25 07:40 02/20/25 07:40 02/20/25 07:40 02/20/25 07:40
I&O
02/19/25 02/20/25 02/21/25
06:59 06:59 06:59
Intake Total 4850 / 4850
Output Total 700 / 700
Balance -700 / -700 4850 / 4850
Physical Exam
-
General: Well Developed, Well Nourished, No Apparent Distress and Comfortable
HEENT: Normocephalic, Atraumatic, Moist Mucous Membranes, No Ptosis, PERRLA and Nose Appears Normal
Respiratory: Clear to Auscultation and Non Labored Respirations
Cardiac: Regular Rhythm and S1/S2
Breast: Deferred by me
GI: Soft, Nontender, Nondistended and Normal Bowel Sounds
Genito-urinary: No Costovertebral Tender
Musculoskeletal: No Clubbing, No Cyanosis and No Edema
Skin: Warm
Neuro: Awake, Alert, Oriented, AO x 3 and No Motor Deficits
Psych: Calm
Data Reviewed
-
Diagnostic Radiology: Image personally visualized and interpreted and Report Reviewed by me
CT Scan: Image personally visualized and interpreted and Report Reviewed by me
Ultrasound: Image personally visualized and interpreted and Report Reviewed by me
MRI: Image personally visualized and interpreted and Report Reviewed by me
Medical Tests (Nuc Med, Echo etc): Image personally visualized and interpreted and Report Reviewed by me
Labs: Labs Reviewed by me
Old Records: Reviewed
[2025-02-20 08:15] LABS: Blood Urea Nitrogen 13 mg/dl (9-20); Calcium 9.1 mg/dl (8.4-10.2); Carbon Dioxide 28 mmol/L (22-30); Chloride 98 mmol/L (98-107); Estimated Creatinine Clearance > 125 ml/min; Glucose 118 mg/dl (70-99); Potassium 3.3 mmol/L (3.5-5.1); Sodium 134 mmol/L (135-145); eGFR > 60.00
[2025-02-20 10:35] VITALS: BP 106/78; BP_SYST 12
[2025-02-20 10:50] VITALS: BP 118/63; BP_SYST 14
[2025-02-20 11:05] VITALS: BP 118/73; BP_SYST 12
[2025-02-20 11:40] VITALS: BP 140/81
[2025-02-20] MEDS: KCL 40 MEQ PO (12:00)
[2025-02-20] MEDS: CRESTOR 10 MG PO (12:03)
--- NOTE | 2025-02-20 13:43 | CM ---
Pt is cleared for discharge to home; pt's will transport.
Plan: Discharge to home with no identified needs.
--- NOTE | 2025-02-20 14:13 | W.DCSUMMARY ---
Discharge Summary
Discharge Data
Date of Admission: 02/18/25
Date of Discharge: 02/20/25
Total time spent discharging patient (in min): 40
-
Pending Results: No
Hospital Course
Hospital course
59 years old with history of hypertension, hyperlipidemia, obesity, who admitted with GI bleeding, seen by GI, plan for EGD/colonoscopy.
EGD/colonoscopy showed:
EGD Findings:
Normal esophagus; Z-line regular at 43 cm from incisors.
Gastric fundus and body showed erythematous and petechial mucosa; biopsies obtained.
No erosions or ulcerations; stomach otherwise normal on direct and retroflexion views.
Duodenum normal up to second portion.
No evidence of active or old bleeding; remainder of upper GI tract normal.
Colonoscopy Findings:
Perianal and digital rectal exams normal.
Visualization limited by extensive semi-liquid stool, blood clots, and poor prep despite lavage.
Terminal ileum normal.
Polyps:
3 mm sessile polyp in ascending colon removed with cold snare; complete resection and retrieval.
10 mm semi-pedunculated polyp in transverse colon removed with hot snare; complete resection and retrieval. Three hemostatic clips placed for hemostasis and tissue capture.
Tattoo at hepatic flexure noted; site normal.
Multiple diverticula throughout colon.
Small amount of old blood clots and copious brown stool suggestive of resolved diverticular hemorrhage.
No active bleeding at end of procedure.GI recommended:
- Await pathology results from EGD and colonoscopy
- Strict avoidance of all NSAIDs
- Recommend a repeat colonoscopy as an outpatient within 3 months.
Will require an extended two-day prep
- Return to GI office at appointment to be scheduled after discharge
She will be discharged home today, avoid NSAIDs and repeat CBC after 1 week, follow-up with GI as OP.
Newly diagnosed diabetes, discussed with the patient, diet and exercise, provided with instructions.
During hospitalization patient was treated from the following
Hematochezia with Acute Blood Loss Anemia (Secondary to GI Bleed) status post EGD/colonoscopy
Recent ibuprofen use;
Started IV PPI twice daily
Trend H&H; transfuse if hemoglobin < 7
Started IV fluids
CT abdomen: no active GI extravasation; 1.1 cm indeterminate nodule in lateral aspect of interpole of left kidney ? MRI abdomen outpatient (non-emergent)
GI following; plan for EGD/colonoscopy per GI
Resulted as above.EGD unremarkable.
Colonoscopy shows 2 polyps status post removal/diverticulosis.
GI recommending avoiding NSAIDs.
Will be discharged home today and repeat CBC after only
Presyncope (Likely Secondary to Acute GI Bleed)
Monitor
Continue IV fluids
Diabetes mellitus newly diagnosed (no history of diabetes)
Hemoglobin A1c 6.7.
Insulin sliding scale.
Diabetic teaching.
Discussed with the patient, diet and exercise, provided with instructions.
Patient prefers to hold off starting metformin for now.
Lactic Acidosis
Resolved
Continue fluids
Hypokalemia
Replete potassium
History of Hypertension
Hold chlorthalidone (BP normal and hypokalemia present)
Hyperlipidemia
Continue current management
Morbid Obesity (Due to Excess Calories)
Monitor
Recommend outpatient sleep apnea study
DVT Prophylaxis
Sequential compression devices (SCDs)
Code Status
Full code
Diet: low carb.
Disposition: Discharge home today.
Total time spent on today's encounter was 40 minutes which included time spent in counseling the patient/family regarding diagnosis and treatment plan as listed above, goals of care, and symptom management. Case was discussed with nursing staff,
specialists, and care coordinators/case management. All labs and imaging personally reviewed by me. Remainder the time spent in detailed review of previous records, lab data, imaging, and other medical provider documentation.
Anticipated Discharge: Today
Discharge Plan
-
Patient Disposition: Home (Routine Discharge)
Discharge Diagnosis/Procedures: Acute GI bleeding
Anemia
Diet: As tolerated and Diabetic, Carb Controlled
Additional Diets: start with soft diet
Activity: As tolerated
Instructions: Type 2 diabetes, Diabetes and diet
Referrals:
Kamran West DO [Family Provider, Family Practice]
Yoel Eden DO [Active, Gastroenterology] - in two to four weeks
Additional Discharge Medication Instructions: Avoid NSAIDs
Prescriptions:
New
(DME) Complete Blood Count
See Rx Instructions .Route .MEDSULY Qty: 1 0RF
Rx Instructions:
Diagnosis: Anemia
to be done after one week
Continued
chlorthalidone 25 mg Tablet
25 mg PO DAILY
rosuvastatin 10 mg Tablet
10 mg PO DAILY
famotidine [Pepcid] 20 mg Tablet
20 mg PO DAILY PRN (Reason: acid reflux)
Discontinued
ibuprofen [Advil] 200 mg Tablet
800 mg PO PRN PRN (Reason: pain)
Discharge Orders:
Discharge Patient (As Directed); Ordered 02/20/25
Ordered By: Deedee Harrington
Discharge Date and Time
Print Language: TELUGU
== END 2025-02-20 15:28 | disposition home or self-care (01) | DRG 378 ==
LOC: 3 WEST ACU 12:54
PROVIDERS: Physician Assistant; ADMITTING PHYSICIAN Internal Medicine; ATTENDING PHYSICIAN General Practice; CONSULT PHYSICIAN Student in an Organized Health Care Education/Training Program; EMERGENCY PHYSICIAN Emergency Medicine; FAMILY PHYSICIAN Family Medicine
PROC: 0DBL8ZZ Excision of Transverse Colon, Via Natural or Artificial Opening Endoscopic (ICD-10-PCS; 2025-02-20)
PROC: 0DB68ZX Excision of Stomach, Via Natural or Artificial Opening Endoscopic, Diagnostic (ICD-10-PCS; 2025-02-20)
PROC: 0DBK8ZZ Excision of Ascending Colon, Via Natural or Artificial Opening Endoscopic (ICD-10-PCS; 2025-02-20)
DX: K57.31 Diverticulosis of large intestine without perforation or abscess with bleeding (principal); D62 Acute posthemorrhagic anemia; E87.20 Acidosis, unspecified; Z68.41 Body mass index [BMI] 40.0-44.9, adult; E11.9 Type 2 diabetes mellitus without complications; E66.01 Morbid (severe) obesity due to excess calories; E78.00 Pure hypercholesterolemia, unspecified; E86.1 Hypovolemia; E87.6 Hypokalemia; I10 Essential (primary) hypertension; K63.5 Polyp of colon; K31.89 Other diseases of stomach and duodenum; Z86.0100 Personal history of colon polyps, unspecified; Z87.891 Personal history of nicotine dependence
CPT/HCPCS: 74174; 80048; 80053; 83036; 83605; 85014; 85018; 85025; 86850; 86900; 86901; 88305; 88342; 96360; 96361; 99285; Q9967